=== PATIENT | male | born 1975 | race Two or more races ===

== ENCOUNTER 2020-11-18 11:03 | Emergency (ER) | payer SELFPAY ==
[2020-11-18 11:10] VITALS: TEMP 98; BMI 30.7
[2020-11-18] MEDS ORDERED: diazePAM 5 MG TABLET PO ONE (13:40)
[2020-11-18] MEDS ORDERED: diazePAM 5 MG TABLET ONE (13:52)
[2020-11-18 15:37] VITALS: BP 100/52; PULSE 115
== END 2020-11-18 16:10 | disposition left against medical advice (07) ==
LOC: JER 11:03
DX: F41.9 Anxiety disorder, unspecified (principal); S06.0X9A Concussion with loss of consciousness of unspecified duration, initial encounter
CPT/HCPCS: 70450-TC; 72125-TC; 93005; 93010

== ENCOUNTER 2020-11-18 18:00 | Inpatient (IN) | payer SELFPAY ==
[2020-11-18 18:20] VITALS: BMI 62.1
[2020-11-18] MEDS ORDERED: SODIUM CHLORIDE 0.9% 500 ML INFUS.BAG IV ONE (18:41)
[2020-11-18] MEDS ORDERED: OCTREOTIDE ACETATE 50 MCG/1 ML - 1 ML VIAL IVPUSH ONE (18:43)
[2020-11-18] MEDS ORDERED: PANTOPRAZOLE SODIUM 40 MG VIAL IVPUSH ONE ×2 (18:44→18:47)
[2020-11-18] MEDS ORDERED: OCTREOTIDE ACETATE 100 MCG/1 ML ONE (18:46)
[2020-11-18] MEDS ORDERED: PANTOPRAZOLE SODIUM 40 MG VIAL ONE (18:46)
[2020-11-18] MEDS ORDERED: OCTREOTIDE ACETATE 200 MCG, OCTREOTIDE ACETATE 1,000 MCG in DEXTROSE 5%-WATER - 496 ML IVPB SCH (19:00)
[2020-11-18 19:20] LABS: INR 1.84 (0.83-1.09); PROTHROMBIN TIME (PATIENT) 21.9 SEC (9.7-13.0)
[2020-11-18 19:22] LABS: ACTIVATED PTT 35.3 SECONDS (25.2-36.5)
[2020-11-18 19:32] LABS: BASO % 0.3 % (0-2.0); EOS % 0.4 % (0-4.5); HEMATOCRIT 14.1 % (35.4-49); LYMPH % 20.1 % (8-40); MEAN CELL VOLUME 80.5 fl (80-96); MEAN PLT VOLUME 10.4 fl (7.5-11.1); MONO % 8.3 % (3.8-10.2); NEUT % 70.9 % (42.8-82.8); PLATELET COUNT 125 10^3/uL (134-434); RBC 1.76 M/mm3 (4.00-5.60); WHITE BLOOD COUNT 20.1 K/mm3 (4.0-10.0)
[2020-11-18 19:33] LABS: ALBUMIN 2.4 g/dl (3.4-5.0); BLOOD UREA NITROGEN 78.6 mg/dL (7-18); CALCIUM 7.1 mg/dL (8.5-10.1)
[2020-11-18 19:34] LABS: HEMOGLOBIN 4.4 GM/dL (11.7-16.9)
[2020-11-18 19:37] LABS: CREATININE 4.2 mg/dL (0.55-1.3)
[2020-11-18 19:38] LABS: BILIRUBIN,TOTAL 0.8 mg/dL (0.2-1)
[2020-11-18 19:53] LABS: LACTIC ACID 11.9 mmol/L (0.4-2.0)
[2020-11-18 19:55] LABS: MAGNESIUM 2.1 mg/dL (1.8-2.4)
[2020-11-18 19:55] LABS: VENOUS BASE EXCESS -15.6 mmol/L (-2-2); VENOUS O2 SATURATION 38.8 % (70-80); VENOUS PCO2 33.1 mmHg (38-52)
[2020-11-18 19:56] LABS: ANISOCYTOSIS 2+; MACROCYTOSIS 1+; PLATELET ESTIMATE DECREASED
[2020-11-18 19:56] LABS: VENOUS PH 7.162 (7.310-7.410)
[2020-11-18] MEDS ORDERED: DEXTROSE 5%-LACTATED RINGERS 1,000 ML IV SCH (20:00)
[2020-11-18] MEDS ORDERED: SODIUM BICARBONATE 8.4% 50 MEQ/50 ML DISP.SYRIN IVPUSH ONE (20:06)
[2020-11-18] MEDS ORDERED: SODIUM BICARBONATE 8.4% - 50 ML ONE (20:11)
[2020-11-18] MEDS ORDERED: LORazepam 2 MG/ML SDV VIAL ONE ×2 (20:33→22:30)
[2020-11-18] MEDS ORDERED: LORazepam 2 MG/ML SDV VIAL IVPUSH ONE ×2 (20:34→22:29)
[2020-11-18] MEDS ORDERED: PHYTONADIONE 5 MG TABLET PO SCH (21:15)
[2020-11-18] MEDS ORDERED: PNEUMOC 13-VAL CONJ-DIP CRM/PF 0.5 ML DISP.SYRIN IM ONE (21:58)
[2020-11-18] MEDS ORDERED: PNEUMOCOCCAL 23 VACCINE 0.5 ML VIAL IM ONE (22:00)
[2020-11-18] MEDS ORDERED: CHLORHEXIDINE GLUCONATE 4% CLEANSER FOR DECOLONIZATION TP SCH (22:00)
[2020-11-18] MEDS ORDERED: MUPIROCIN 2% TOPICAL OINTMENT FOR DECOLONIZATION NS SCH (22:00)
[2020-11-18] MEDS ORDERED: HALOPERIDOL LACTATE 5 MG/ML IM ONE (22:02)
[2020-11-18] MEDS ORDERED: DEXMEDETOMIDINE IN 0.9 % NACL 200 MCG/50 ML EACH IVPB SCH (23:15)
[2020-11-18] MEDS ORDERED: DEXMEDETOMIDINE IN 0.9 % NACL 400 MCG/100 ML VIAL IVPB SCH (23:26)
[2020-11-19] MEDS ORDERED: PIPERACILLIN/TAZOBACTAM 3.375 GM VIAL IVPB ONE ×2 (00:22→11:09)
[2020-11-19] MEDS ORDERED: DEXTROSE 5%-WATER - 50 ML IVPB ONE ×2 (00:22→11:10)
[2020-11-19] MEDS: PHYTONADIONE 10 MG/1 ML AMP IVPB SCH ×2 (00:57→11:18)
[2020-11-19] MEDS ORDERED: SODIUM CHLORIDE 500 ML IV STA ×3 (01:01→06:36)
[2020-11-19] MEDS ORDERED: LACTATED RINGERS SOLUTION 1000 ML INFUS.BAG IV ONE ×2 (01:23→08:04)
[2020-11-19] MEDS ORDERED: SODIUM BICARBONATE 8.4% 50 MEQ/50 ML DISP.SYRIN IVPUSH ONE ×2 (01:26→03:33)
[2020-11-19] MEDS ORDERED: RAPID SEQUENCE INTUBATION KIT NR ONE (01:36)
[2020-11-19] MEDS ORDERED: FENTANYL NS IVPB 500 MCG/100 ML BAG IVPB ONE (01:45)
[2020-11-19] MEDS ORDERED: MIDAZOLAM IN 0.9 % SOD.CHLORID 1 MG/1 ML PLAST..BAG ONE (01:45)
[2020-11-19] MEDS ORDERED: ETOMIDATE 40 MG/20 ML VIAL IVPUSH ONE (01:50)
[2020-11-19] MEDS ORDERED: ROCURONIUM BROMIDE 50 MG/5 ML VIAL IV ONE ×2 (01:50→06:59)
[2020-11-19] MEDS ORDERED: MIDAZOLAM IN 0.9 % SOD.CHLORID 100 MG/100 ML PLAST..BAG IVPB SCH (02:00)
[2020-11-19] MEDS ORDERED: PIPERACILLIN/TAZOB 3.375 GM 3.375 GM in DEXTROSE 5%-WATER - 50 ML IVPB SCH ×2 (02:00→18:00)
[2020-11-19] MEDS ORDERED: FENTANYL NS IVPB 500 MCG/100 ML BAG IVPB SCH (02:00)
[2020-11-19] MEDS ORDERED: VASOPRESSIN 20 UNITS/ML VIAL IV ONE (02:35)
[2020-11-19] MEDS ORDERED: VASOPRESSIN 40 UNITS in SODIUM CHLORIDE 98 ML IVPB SCH (02:45)
[2020-11-19 02:48] LABS: URINE UREA NITROGEN 290 mg/dL (350-1000)
[2020-11-19 02:50] LABS: COCAINE, UR NEGATIVE (NEGATIVE); URINE AMPHETAMINES NEGATIVE (NEGATIVE); URINE BARBITURATES NEGATIVE (NEGATIVE)
[2020-11-19 02:51] LABS: PHENCYCLIDINE,URINE NEGATIVE (NEGATIVE)
[2020-11-19 02:59] LABS: CHLORIDE 102 mmol/L (98-107); SODIUM 133 mmol/L (136-145)
[2020-11-19 02:59] LABS: ARTERIAL BLD GAS O2 SATURATION 99.5 mmHg (95-98); ARTERIAL BLOOD GAS BASE EXCESS -14.4 mmol/L (-2-2); ARTERIAL BLOOD GAS PO2 318.7 mmHg (80-100)
[2020-11-19 03:01] LABS: CO2 13 mmol/L (21-32); GLUCOSE,RANDOM 162 mg/dL (74-106)
[2020-11-19 03:04] LABS: ALLENS TEST POSITIVE; PT'S TEMP 100; VENT MODE A/C; VENT RATE 18
[2020-11-19] MEDS ORDERED: NOREPINEPHRINE NS PREMIX 16,000 MCG/500 ML BAG IVPB ONE (03:04)
[2020-11-19 03:11] LABS: ANION GAP 18 MMOL/L (8-16); CALCIUM 5.9 mg/dL (8.5-10.1); CREATININE 4.4 mg/dL (0.55-1.3); METHADONE, UR NEGATIVE (NEGATIVE); OPIATES, URI NEGATIVE (NEGATIVE); URINE BENZODIAZEPINES POSITIVE (NEGATIVE)
[2020-11-19] MEDS ORDERED: CALCIUM GLUCONATE 10% - 1,000 MG/10 ML VIAL IVPUSH ONE (03:32)
[2020-11-19] MEDS ORDERED: INSULIN REGULAR HUMAN 100 UNITS/ML *VIAL IVPUSH ONE ×2 (03:33→09:28)
[2020-11-19] MEDS ORDERED: DEXTROSE 50%-WATER - 25 GM/50 ML VIAL IVPUSH ONE ×2 (03:34→09:28)
[2020-11-19] MEDS ORDERED: DEXTROSE 50%-WATER 25 GM/50 ML DISP.SYRIN ONE ×2 (03:34→12:03)
[2020-11-19] MEDS ORDERED: CALCIUM CHLORIDE 1 GM/10 ML *DISP.SYRIN ONE (03:34)
[2020-11-19] MEDS ORDERED: SODIUM BICARBONATE 8.4% - 75 MEQ in SODIUM CHLORIDE 0.45% 950 ML IV SCH (04:15)
[2020-11-19 04:47] LABS: HEMATOCRIT 8.7 % (35.4-49); MCH 28.1 pg (25.7-33.7); MCHC 31.7 g/dl (32.0-35.9); MEAN CELL VOLUME 88.5 fl (80-96); MEAN PLT VOLUME 10.4 fl (7.5-11.1); PLATELET COUNT 64 10^3/uL (134-434); RBC 0.99 M/mm3 (4.00-5.60); RDW 20.3 % (11.9-15.9); WHITE BLOOD COUNT 11.1 K/mm3 (4.0-10.0)
[2020-11-19 04:49] LABS: HEMOGLOBIN 2.8 GM/dL (11.7-16.9)
[2020-11-19] MEDS ORDERED: PANTOPRAZOLE SODIUM 40 MG VIAL IVPUSH ONE (04:51)
[2020-11-19] MEDS ORDERED: PANTOPRAZOLE SODIUM 80 MG in SODIUM CHLORIDE 100 ML IVPB SCH (04:52)
[2020-11-19 04:54] LABS: INR 2.81 (0.83-1.09)
[2020-11-19 04:57] LABS: ACTIVATED PTT 68.1 SECONDS (25.2-36.5)
[2020-11-19] MEDS ORDERED: PHENYLEPHRINE HCL 10 MG/1 ML SINGLE DOSE VIAL ONE ×2 (05:09→05:11)
[2020-11-19] MEDS ORDERED: PHENYLEPHRINE NS PREMIX 50,000 MCG/500 ML BAG CVP SCH (05:15)
[2020-11-19] MEDS ORDERED: NOREPINEPHRINE D5W PREMIX 16,000 MCG/500 ML BAG IVPB SCH (05:45)
[2020-11-19] MEDS ORDERED: ROCURONIUM BROMIDE 100 MG/10 ML VIAL ONE (07:00)
[2020-11-19] MEDS ORDERED: MIDAZOLAM HCL 2 MG/2 ML SINGLE DOSE VIAL ONE (07:00)
[2020-11-19] MEDS ORDERED: VECURONIUM BROMIDE 100 MG/100 ML BAG IVPB SCH (07:15)
[2020-11-19] MEDS ORDERED: MIDAZOLAM HCL 2 MG/2 ML SINGLE DOSE VIAL IVPUSH ONE (07:15)
[2020-11-19] MEDS ORDERED: SODIUM BICARBONATE 8.4% - 150 MEQ in DEXTROSE 5%-WATER - 950 ML IV SCH (08:30)
[2020-11-19] MEDS ORDERED: DEXTROSE 5%-WATER - 1,000 ML with SODIUM BICARBONATE 8.4% - 150 MEQ IV SCH (08:30)
[2020-11-19] MEDS ORDERED: CALCIUM GLUCONATE IN NACL 1 GM/50 ML BAG IVPB ONE (09:27)
[2020-11-19 11:07] LABS: BASO % 0.5 % (0-2.0); EOS % 0.1 % (0-4.5); HEMATOCRIT 11.5 % (35.4-49); LYMPH % 21.3 % (8-40); MCHC 31.4 g/dl (32.0-35.9); MEAN CELL VOLUME 98.7 fl (80-96); MEAN PLT VOLUME 10.1 fl (7.5-11.1); MONO % 15.6 % (3.8-10.2); NEUT % 62.5 % (42.8-82.8); RBC 1.17 M/mm3 (4.00-5.60); RDW 14.9 % (11.9-15.9); WHITE BLOOD COUNT 15.1 K/mm3 (4.0-10.0)
[2020-11-19 11:11] LABS: HEMOGLOBIN 3.6 GM/dL (11.7-16.9)
[2020-11-19 11:13] LABS: PLATELET COUNT 25 10^3/uL (134-434)
[2020-11-19 11:16] LABS: INR 3.36 (0.83-1.09); PROTHROMBIN TIME (PATIENT) 39.9 SEC (9.7-13.0)
[2020-11-19 11:23] LABS: CHLORIDE 111 mmol/L (98-107); SODIUM 142 mmol/L (136-145)
[2020-11-19 11:26] LABS: ANION GAP 17 MMOL/L (8-16); CO2 13 mmol/L (21-32); GLUCOSE,RANDOM 136 mg/dL (74-106)
[2020-11-19 11:29] LABS: SGOT/AST 900 U/L (15-37)
[2020-11-19 11:30] LABS: CREATININE 4.6 mg/dL (0.55-1.3); SGPT/ALT 231 U/L (13-61)
[2020-11-19 11:32] LABS: BILIRUBIN,TOTAL 0.6 mg/dL (0.2-1)
[2020-11-19 11:35] LABS: ALBUMIN 0.8 g/dl (3.4-5.0); ALK PHOS 24 U/L (45-117); CALCIUM 5.5 mg/dL (8.5-10.1); TOT PROT 1.7 g/dl (6.4-8.2)
[2020-11-19] MEDS ORDERED: PT OWN MED DRAWER 7, Y5N ONE (11:45)
[2020-11-19 12:09] LABS: ANISOCYTOSIS 2+; PLATELET ESTIMATE DECREASED
[2020-11-19 15:46] VITALS: BP 63/25; PULSE 87; TEMP 98.6
== END 2020-11-19 12:34 | disposition expired | DRG 242 ==
LOC: JER 18:00 → JERBED 20:18 → JICU 21:19
PROVIDERS: ADMIT Internal Medicine Pulmonary Disease; ATTEND Internal Medicine Pulmonary Disease
PROC: 05HM33Z Insertion of Infusion Device into Right Internal Jugular Vein, Percutaneous Approach (ICD-10-PCS; principal; 2020-11-19)
PROC: B543ZZA Ultrasonography of Right Jugular Veins, Guidance (ICD-10-PCS; 2020-11-19)
PROC: 0D9670Z Drainage of Stomach with Drainage Device, Via Natural or Artificial Opening (ICD-10-PCS; 2020-11-19)
PROC: 30233K1 Transfusion of Nonautologous Frozen Plasma into Peripheral Vein, Percutaneous Approach (ICD-10-PCS; 2020-11-19)
PROC: 30233N1 Transfusion of Nonautologous Red Blood Cells into Peripheral Vein, Percutaneous Approach (ICD-10-PCS; 2020-11-19)
PROC: 5A1935Z Respiratory Ventilation, Less than 24 Consecutive Hours (ICD-10-PCS; 2020-11-19)
PROC: 0BH17EZ Insertion of Endotracheal Airway into Trachea, Via Natural or Artificial Opening (ICD-10-PCS; 2020-11-19)
DX: I85.11 Secondary esophageal varices with bleeding (principal); R41.82 Altered mental status, unspecified; N17.9 Acute kidney failure, unspecified; E87.2 Acidosis; R00.0 Tachycardia, unspecified; D62 Acute posthemorrhagic anemia; I24.8 Other forms of acute ischemic heart disease; K72.90 Hepatic failure, unspecified without coma; K57.90 Diverticulosis of intestine, part unspecified, without perforation or abscess without bleeding; D69.6 Thrombocytopenia, unspecified; K72.00 Acute and subacute hepatic failure without coma; E87.5 Hyperkalemia; I95.9 Hypotension, unspecified; K76.6 Portal hypertension; I46.9 Cardiac arrest, cause unspecified; F10.20 Alcohol dependence, uncomplicated; D68.9 Coagulation defect, unspecified; E87.1 Hypo-osmolality and hyponatremia; E46 Unspecified protein-calorie malnutrition; Z68.32 Body mass index [BMI] 32.0-32.9, adult; J96.01 Acute respiratory failure with hypoxia; R57.9 Shock, unspecified; D68.4 Acquired coagulation factor deficiency
CPT/HCPCS: 36415; 36430; 36600; 70450-TC; 71045-TC-FY; 72125-TC; 74018-TC-FY; 74176-TC; 80048; 80053; 80307; 82010; 82140; 82272; 82570; 82803; 83605; 83735; 83935; 84300; 84484; 84540; 85025; 85027; 85384; 85610; 85730; 86900; 86922; 87804; 93005; 93010; 94002; 99285-25; C9803; P9012; P9017; P9058; U0003; U0005